=== PATIENT | female | born 1945 | race Caucasian/White ===

== ENCOUNTER → 2017-11-05 | Outpatient (REF) | payer MEDICARE, OTHER ==
[~2017-11-05] MED LIST: B CM1TAB2 PO; CLINDAMYCIN; ESTR-95 TD; HORMONE PATCH; LEVO50 PO; LOR5 PO; PROG100C4 PO
== END ==
LOC: ZZSENDIN 12:00
PROVIDERS: ATTEND Orthopaedic Surgery Hand Surgery
DX: M71.342 Other bursal cyst, left hand (principal)
CPT/HCPCS: 88305

== ENCOUNTER → 2018-03-29 | Outpatient (CLI) | payer MEDICARE, OTHER | LOC: LAB 07:04 | PROVIDERS: ATTEND Anesthesiology | DX: Z01.812 Encounter for preprocedural laboratory examination (principal); E03.9 Hypothyroidism, unspecified; M67.431 Ganglion, right wrist | CPT/HCPCS: 36415; 82040; 82247; 82310; 82374; 82435; 82565; 82947; 84075; 84132; 84155; 84295; 84443; 84450; 84460; 84520 ==

== ENCOUNTER → 2018-04-09 | Outpatient (REF) | payer MEDICARE, OTHER | LOC: ZZSENDIN 12:00 | PROVIDERS: ATTEND Orthopaedic Surgery Hand Surgery | DX: M67.431 Ganglion, right wrist (principal) | CPT/HCPCS: 88304 ==

== ENCOUNTER → 2018-05-11 | Outpatient (REF) | payer MEDICARE, OTHER | LOC: ZZSENDIN 16:34 | PROVIDERS: ATTEND Internal Medicine | DX: R10.9 Unspecified abdominal pain (principal); R19.7 Diarrhea, unspecified; R14.1 Gas pain | CPT/HCPCS: 87177 ==